=== PATIENT | male | born 1970 | race Hispanic/Latino ===

== ENCOUNTER → 2018-12-10 | Outpatient (CLI) | payer OTHER ==
--- NOTE | 2018-12-10 10:30 | NUR ---
MBSS COMPLETED. SILENT ASPIRATION WITH THIN LIQUIDS. RECOMMEND MECHANICAL SOFT, NECTAR-THICK LIQUIDS; PILLS WHOLE WITH LIQUIDS. PATIENT INFORMATION: Pt IS A 48 YEAR OLD MALE REFERRED FOR AN MBSS SECONDARY TO IMPROVED OVERALL ABILITIES. Pt IS CURRENTLY AT A LOCAL [facility] WITH ADMITTING DIAGNOSIS OF RESPIRATORY FAILURE, SEPSIS AND PNEUMONIA. Pt CURRENTLY ON TRACH SHILEY #6 (FENESTRATED) RED CAPPED ON ROOM AIR AND PEG WITH NO P.O. FOODS AT THIS TIME. PT WITH PAST MEDICAL HISTORY SIGNIFICANT FOR GUILLAIN-BARRE SYNDROME, HYPERTENSION, ALCOHOL ABUSE, CIRRHOSIS, ASCITES, PARACENTESIS, KLEBSIELLA PNEUMONIS, DEPRESSION, WEIGHT LOSS, NEUROPATHIC PAIN, ATROPHY OF PROXIMAL MUSCLE MACROCYTIC ANEMIA, CHOLECYSTECTOMY. Pt AAOX3 AND COOPERATIVE DURING THE EVALUATION. Pt WAS ACCOMPANIED BY FAMILY DURING MBSS. MBSS INTERPRETATION: Pt PRESENTS WITH MILD ORAL AND MILD-MODERATE PHARYNGEAL DYSPHAGIA CAUSED BY MILD ORAL MOTOR WEAKNESS, DECREASED TONGUE BASE RETRACTION, DELAYED PHARYNGEAL RESPONSE TIME AND MILDLY DECREASED HYO-LARYNGEAL APPROXIMATION EVIDENCED BY INCREASED MASTICATION TIME, POOLING IN THE [place] (NO RESIDUE), AND MILD POSTERIOR PHARYNGEAL WALL RESIDUE. RESULTING IN SILENT ASPIRATION WITH THIN LIQUIDS VIA CUP SIP. TRIALS: 1. TSP PUREED: GOOD 2. TSP PUDDING: GOOD 3. TSP MIXED: GOOD 4. COOKIE: INCREASED MASTICATION TIME 5. TSP THIN LIQUIDS: DELAYED PHARYNGEAL RESPONSE 6. CUP SIP THIN LIQUIDS: SILENT ASPIRATION 7. CUP SIP NECTAR-THICK LIQUIDS: GOOD RECOMMENDATIONS: 1.MECHANICAL SOFT, NECTAR-THICK LIQUIDS; PILLS WHOLE WITH LIQUIDS. 2. COMPENSATORY STRATEGIES: *SEATED AT 90 *SLOW RATE *SMALL BITES AND SIPS *ALTERNATE BITES AND SIPS 3. DYSPHAGIA TREATMENT TO REHABILITATE SWALLOW FUNCTION. BONE TENDER EDUCATED Pt AND FAMILY ON RISKS AND CONSEQUENCES OF ASPIRATION. BONE TENDER DEMONSTRATED HOW TO REACH NECTAR-THICK LIQUIDS. THEY VERBALIZED UNDERSTANDING AND COMPLIANCE WITH RECOMMENDATIONS. G-CODES SWALLOWING: [id number] Addendum: 12/10/18 at 1301 by SHIRIN BRENNAN, SPT ST Amended: Links added.
== END | disposition home or self-care (01) ==
LOC: RAH 09:56
PROVIDERS: ATTEND Internal Medicine Critical Care Medicine
DX: R13.12 Dysphagia, oropharyngeal phase (principal); R53.1 Weakness; K74.60 Unspecified cirrhosis of liver; I50.9 Heart failure, unspecified; F10.10 Alcohol abuse, uncomplicated; Z90.49 Acquired absence of other specified parts of digestive tract; Z86.2 Personal history of diseases of the blood and blood-forming organs and certain disorders involving the immune mechanism
CPT/HCPCS: 74230; 92611; G8996; G8997; G8998